=== PATIENT | female | born 1965 | race Two or more races ===

== ENCOUNTER → 2024-04-15 | Outpatient (CLI) | payer BC, SELFPAY ==
[2024-04-15 14:09] LABS: Glucose Estimated Average 143 mg/dL (80-131); Hemoglobin A1C 6.6 % Hgb (4.8-6.0)
[2024-04-15 14:19] LABS: Alanine Aminotransferase 22 U/L (10-49); Albumin, Serum 4.7 gm/dL (3.5-5.0); Albumin/Globulin Ratio 1.5 (1.2-2.2); Alkaline Phosphatase 92 U/L (46-116); Anion Gap 7 (7-16); Aspartate Amino Transferase 17 U/L (0-34); BUN/Creatinine Ratio 17 Ratio (12-20); Bilirubin,Total 1.3 mg/dL (0.3-1.2); Blood Urea Nitrogen 12 mg/dL (9-23); Calcium 9.8 mg/dL (8.3-10.6); Calcium (Corrected) 9.8 mg/dL (8.5-10.1); Carbon Dioxide 27.5 mMol/L (20.0-31.0); Cardiac Risk Estimate 3.9 RATIO (3.7-5.6); Chloride 104 mMol/L (98-107); Cholesterol 196 mg/dL (132-200); Creatinine (Component) 0.7 mg/dL (0.6-1.3); Globulin 3.2 gm/dL (2.3-3.5); Glucose 131 mg/dL (74-106); HDL Cholesterol 50 mg/dL (40-60); LDL Cholesterol,Calculated 103 mg/dL (0-130); Osmolality,Calculated 277 (275-295); Sodium 138 mMol/L (136-145); Total Protein 7.9 gm/dL (5.7-8.2); Triglycerides 217 mg/dL (30-150); eGFR > 60 See Note
== END | disposition home or self-care (01) ==
LOC: COPL 12:03
PROVIDERS: PCP Internal Medicine; Referring Provider Internal Medicine; Visit Provider Internal Medicine
DX: I10 Essential (primary) hypertension (principal); E11.65 Type 2 diabetes mellitus with hyperglycemia
CPT/HCPCS: 36415; 80053; 80061; 83036

== ENCOUNTER 2024-12-29 14:57 | Emergency (ER) | payer BC, SELFPAY ==
[2024-12-29 14:58] VITALS: BMI 29.5
[2024-12-29 15:09] VITALS: BP 138/91; PULSE 100; RESP 20; TEMP 37; O2SAT 100
--- NOTE | 2024-12-29 15:15 | PD.EDRME ---
Rapid Medical Screening Exam RME Arrival date/time: 12/29/24 14:57 59-year-old female with a history of type 2 diabetes, hypertension presents to the emergency room with a chief complaint of abdominal pain, diarrhea, vomiting, and uncontrolled sugar readings. I have greeted and performed a focused initial assessment of this patient. A comprehensive ED assessment and evaluation of the patient, analysis of all test results, and completion of the medical decision making process will be conducted by additional ED providers. Chief Complaint: General Adult/Misc Complain Time Seen by Provider: 12/29/24 14:59 Vital signs: Vital Signs Temperature 98.6 F 12/29/24 15:09 Pulse Rate 100 12/29/24 15:09 Respiratory Rate 20 12/29/24 15:09 Blood Pressure 138/91 H 12/29/24 15:09 Pulse Oximetry (%) 100 12/29/24 15:09 Oxygen Delivery Method Room Air 12/29/24 15:09 Vital signs reviewed by provider: Yes
[2024-12-29] MEDS: ONDANSETRON ODT 4 MG TABRAP PO (15:23)
[2024-12-29 16:10] VITALS: BP 122/91; PULSE 79; RESP 18; TEMP 36.6; O2SAT 97
--- NOTE | 2024-12-29 16:21 | PC.NURSE ---
PER PT, SHE HAS BEEN SICK THE PAST FEW DAYS WITH VOMITING AND DIARRHEA, HER SUGARS HAVE BEEN UP AND DOWN, GOING INTO THE LOW 200S. PT DOES NOT TAKE INSULIN IS ON METFORMIN. AWAITING FURTHER ORDERS FOR POC. CALL SAEED IN REACH FAMILY AT BEDSIDE ATTENTIVE TO PT.
[2024-12-29 16:22] LABS: Basophils # (Auto) 0.0 Thou/mm3 (0.0-0.2); Basophils % (Auto) 0 % (0-2.5); Eosinophils # (Auto) 0.1 Thou/mm3 (0.0-0.5); Eosinophils % (Auto) 1 % (0-10); Hematocrit 42.2 % (36.0-46.0); Hemoglobin 14.9 g/dL (12.0-16.0); Immature Granulocytes Auto 0.03 Thou/mm3 (0.00-0.00); Lymphocytes # (Auto) 1.7 Thou/mm3 (1.0-4.8); Lymphocytes % (Auto) 19 % (10-50); Mean Corpuscular HGB Conc 35.3 g/dl (31.0-37.0); Mean Corpuscular Hemoglobin 30.5 pg (25.0-35.0); Mean Corpuscular Volume 86 fL (80-100); Monocytes # (Auto) 0.4 Thou/mm3 (0.0-0.8); Monocytes % (Auto) 5 % (0-12); Neutrophils # (Auto) 6.8 Thou/mm3 (1.8-7.7); Neutrophils % (Auto) 75 % (37-80); Nucleated Red Blood Cell # 0.00 Thou/mm3 (0.00-0.00); Nucleated Red Blood Cell % 0 /100 WBC (0); Platelet Count 279 Thou/mm3 (140-440); RDW Standard Deviation 39.9 fL (36.4-46.3); Red Blood Count 4.89 Miln/mm3 (4.00-5.20); White Blood Count 9.1 Thou/mm3 (3.6-11.0)
[2024-12-29 16:31] LABS: Alanine Aminotransferase 52 U/L (10-49); Albumin, Serum 4.9 gm/dL (3.5-5.0); Albumin/Globulin Ratio 1.4 (1.2-2.2); Alkaline Phosphatase 88 U/L (46-116); Anion Gap 13 (7-16); Aspartate Amino Transferase 41 U/L (0-34); BUN/Creatinine Ratio 14 Ratio (12-20); Bilirubin,Total 2.6 mg/dL (0.3-1.2); Blood Urea Nitrogen 13 mg/dL (9-23); Calcium 10.0 mg/dL (8.3-10.6); Calcium (Corrected) 10.0 mg/dL (8.5-10.1); Carbon Dioxide 26.2 mMol/L (20.0-31.0); Chloride 96 mMol/L (98-107); Creatinine (Component) 0.9 mg/dL (0.6-1.3); Estimated Creatinine Clearance 66.4 mL/min (>60); Globulin 3.4 gm/dL (2.3-3.5); Glucose 144 mg/dL (74-106); Lipase 32 U/L (12-53); Osmolality,Calculated 273 (275-295); Potassium 3.5 mMol/L (3.4-5.1); Sodium 135 mMol/L (136-145); Total Protein 8.3 gm/dL (5.7-8.2); eGFR > 60 See Note
[2024-12-29 18:10] VITALS: BP 118/77; PULSE 78; RESP 16; TEMP 36.8; O2SAT 96
--- NOTE | 2024-12-29 18:48 | PD.EDRECHK ---
ED Recheck Abnl Lab Rx-RME/HPI General Chief Complaint: General Adult/Misc Complain Stated Complaint: HIGH BLOOD SUGAR Time Seen by Provider: 12/29/24 14:59 Arrival date/time: 12/29/24 14:57 RME / HPI RME / HPI narrative: 12/29/24 14:57 59-year-old female with a history of type 2 diabetes, hypertension presents to the emergency room with a chief complaint of abdominal pain, diarrhea, vomiting, and uncontrolled sugar readings. I have greeted and performed a focused initial assessment of this patient. A comprehensive ED assessment and evaluation of the patient, analysis of all test results, and completion of the medical decision making process will be conducted by additional ED providers. This section includes all my notes and documentations, including HPI, PE, and ED course. Jann Campos MD HPI: 59yo female with a history of DM, HTN here with nausea, vomiting, and diarrhea for the last few days. No abdominal pain. No other complaints reported. ROS: All negative except as documented in HPI. Physical Exam: General: Alert and oriented. No acute distress when remaining still. Eyes: Conjunctivae and lids clear. ENT: No nasal congestion. Neck: Supple. Heart: RRR. Lungs: No respiratory distress. Good air movement. No rhonchi, wheezing, rales. Abdomen: Soft and nontender. Normal bowel sounds. No distension. No rebound or guarding. Back: No CVA tenderness. Skin: Warm and dry. Neuro: Alert and oriented X 3. I reviewed all diagnostic test results. Blood tests and urine tests are unremarkable. COVID/Influenza negative. At this point, diagnoses include: stomach flu. Treatment here included: Zofran, Toradol, and NS. Significant improvement noted. Recommended supportive care. Based on my best medical judgment, made decision no further evaluation or treatment indicated at this time. Patient understands and agrees to the discharge instructions customized and printed, see below. Discharge Instructions from Dr. Campos: 1. After evaluation, you have stomach flu. See attached handout on gastroenteritis. 2. This is caused by virus germs. And we do not have good medications to kill the virus germs. But your immune system will fight it off. 3. Your job is to stay hydrated. Zofran for nausea/vomiting. Increase oral fluid and maintain clear urine. If dark or yellow, increase oral fluid. 4. Do not take any medications to stop your diarrhea. But try to replenish the fluid and electrolytes you are losing. 5. Some good choices are water (but not only water because it will cause electrolyte abnormalities), sports drinks like Gatorade (with less sugar content), coconut water, chicken stock, and other fluid with electrolytes (like Pedialyte). 6. See a private doctor on 01/01/2025 if not completely better. 7. Seek immediate medical care with worsening or with any concerns. Jann Campos MD Related Data Home Medications ?Medication ?Instructions ?Recorded ?Confirmed alprazolam 0.25 mg tablet 0.25 mg PO BID PRN Anxiety 08/04/20 08/04/20 losartan 50 mg-hydrochlorothiazide 1 tab PO QDAY 08/04/20 08/04/20 12.5 mg tablet metformin 500 mg tablet 500 mg PO TID 08/04/20 08/04/20 Previous Rx's ?Medication ?Instructions ?Recorded ondansetron 4 mg disintegrating 4 mg PO TID PRN nausea and 12/29/24 tablet vomiting 30 days #10 tabs Allergies Allergy/AdvReac Type Severity Reaction Status Date / Time methotrexate (From Allergy Severe Swelling Verified 12/29/24 15:00 Rheumatrex) of the Eye Review of Systems Review of Systems Systems Reviewed: All systems reviewed, normal except as documented Past Medical History Past Medical History NEUROLOGIC: Negative Neurological Disorders or Seizures CARDIAC: Positive Cardiac Disorders and Hypertension; Negative Congestive Heart Failure RESPIRATORY: Negative Chronic Obstructive Pulmonary Disease (COPD) GASTROINTESTINAL: Positive Gastrointestinal Disorders and Gall Bladder Disease GENITOURINARY: Negative Genitourinary Disorders or Renal Disease REPRODUCTIVE: Positive Previous Pregnancies (x3) MUSCULOSKELETAL: Negative Musculoskeletal Disorders ENDOCRINE: Positive Endocrine Disorders and Diabetes Mellitus Type 2; Negative Diabetes Mellitus Type 1 HEMATOLOGIC: Negative Blood Disorders or Anemia PSYCHO/SOCIAL: Positive Anxiety OTHER HISTORY: Positive Blood Transfusions; Negative Hospitalization, Autoimmune Disease, Down Syndrome, Developmental Delay, Shingles, Falls, Blood Transfusion Reaction, Anesthesia Reactions or Cancer Family History FAMILY HISTORY: Negative Family Cardiac Disorders Surgical History SURGICAL: Positive Abdominal Surgery, Hysterectomy and Section; Negative Cardiac Surgery, Ear Surgery or Joint Replacement Social History SMOKING STATUS: Never smoker SECOND HAND EXPOSURE: No SUBSTANCE USE: does not use ED Exam Narrative Physical exam: As noted in HPI. Course Quality Measures none Orders Category Date Time Status Bedside COVID-19 Antigen Test NOW Care 12/29/24 18:57 Completed Bedside Influenza A&B Antigen Test NOW Care 12/29/24 18:57 Completed Saline [Insert IV] NOW Care 12/29/24 18:57 Completed CBC Stat Lab 12/29/24 15:58 Completed CMP [Comprehensive Metabolic Panel] Stat Lab 12/29/24 15:58 Completed Lipase Stat Lab 12/29/24 15:58 Completed Magnesium Stat Lab 12/29/24 15:58 Completed UA [Urinalysis] Stat Lab 12/29/24 19:43 Completed Urine Culture Stat Lab 12/29/24 19:43 Received Ketorolac Inj [Toradol Inj] Med 12/29/24 18:57 Discontinued 30 mg IVP X1 ONE Ondansetron Inj [Zofran Inj] Med 12/29/24 18:57 Discontinued 4 mg IVP X1 ONE Ondansetron Odt [Zofran Odt] Med 12/29/24 15:15 Discontinued 4 mg PO X1 ONE Sodium Chloride 0.9% 1000 ml [Ns] 1,000 ml Med 12/29/24 18:57 Discontinued IV 999 mls/hr Vital Signs Vital signs: Vital Signs Temperature 98.6 F 12/29/24 15:09 Pulse Rate 100 12/29/24 15:09 Respiratory Rate 20 12/29/24 15:09 Blood Pressure 138/91 H 12/29/24 15:09 Pulse Oximetry (%) 100 12/29/24 15:09 Oxygen Delivery Method Room Air 12/29/24 15:09 Recheck / Abnormal Lab / Rx MDM Narrative MDM Narrative:: 59yo female with a history of DM, HTN here with nausea, vomiting, and diarrhea for the last few days. No abdominal pain. No other complaints reported. Patient data External records reviewed:: [facility] previous records (Per chart review, patient was seen here on 04/05/23 for dizziness.) Clinical information provided by:: patient Social determinants that could affect healthcare access:: none Patient has the following chronic illnesses:: DM, HTN How is presenting disease/condition affected by chronic disease/condition?: caused by Evaluation data The following diagnostics were reviewed and interpreted by me:: lab results Lab and/or radiology exams considered but not ordered:: none Interpretation Summary: I reviewed all diagnostic test results. Blood tests and urine tests are unremarkable. COVID/Influenza negative. Medications / Prescriptions Medications or Prescriptions considered but not ordered:: none Medication administrations:: Medication Administration History Discontinued Medications Sodium Chloride (Ns) 1,000 mls @ 999 mls/hr IV .Q1H1M ONE Stop: 12/29/24 19:57 Last Infusion: 12/29/24 20:49 Dose: Infused Documented By: Admin: 12/29/24 19:47 Dose: 999 mls/hr Documented By: CCT Ketorolac Tromethamine (Ketorolac Inj 30 Mg/Ml Vial) 30 mg IVP X1 ONE Stop: 12/29/24 18:58 Ondansetron HCl (Ondansetron Odt 4 Mg Tabrap) 4 mg PO X1 ONE; Protocol Stop: 12/29/24 15:16 Last Admin: 12/29/24 15:23 Dose: 4 mg Documented By: DB Ondansetron HCl (Ondansetron Inj 2 Mg/Ml Inj 2 Ml) 4 mg IVP X1 ONE; Protocol Stop: 12/29/24 18:58 Last Admin: 12/29/24 19:47 Dose: 4 mg Documented By: CCT Librado Ayala, NS Consultations Consultation(s) initiated? (list below): No Diagnosis Recheck Differential Diagnosis: other (Gastroenteritis) Most likely diagnosis given after review of the tests above:: Stomach flu Admission Indicated Admission indicated?: not indicated Explain why admission is indicated or not indicated:: With significant improvement and no condition needing emergent intervention, there was no indication for admission. Admission Request Was there a request for admission?: No Disposition Plan Disposition Plan: Discharge Discharge Attestation Discharge Attestation: The patient and all family members were given an opportunity to ask questions and understood the discharge instructions. Discharge instructions specifically effects, indications for sooner follow up or return to the emergency department, and the expected course of current diagnosis. Patient condition: Stable Discharge Plan Plan Patient Disposition: HOME (Self Care) Prescriptions/Referrals Prescriptions/Med Rec: New ondansetron 4 mg tablet,disintegrating 4 mg PO TID PRN (Reason: nausea and vomiting) 30 Days Qty: 10 0RF No Action alprazolam 0.25 mg Tablet 0.25 mg PO BID PRN (Reason: Anxiety) losartan-hydrochlorothiazide 50-12.5 mg Tablet 1 tab PO QDAY metformin 500 mg tablet 500 mg PO TID Referrals: No Primary/Family,Physician [Primary Care Provider] - In 1 week Problem List Clinical Impression: Stomach flu Patient/Caregiver Discharge Instructions Discharge Activity: activity as tolerated Education Materials: ED Gastroenteritis, Viral (Adult) Additional Instructions: Discharge Instructions from Dr. Campos: 1. After evaluation, you have stomach flu.? See attached handout on gastroenteritis. 2. This is caused by virus germs.? And we do not have good medications to kill the virus germs.? But your immune system will fight it off. 3. Your job is to stay hydrated.? Zofran for nausea/vomiting.? Increase oral fluid and maintain clear urine.? If dark or yellow, increase oral fluid. 4. Do not take any medications to stop your diarrhea.? But try to replenish the fluid and electrolytes you are losing. 5. Some good choices are water (but not only water because it will cause electrolyte abnormalities), sports drinks like Gatorade (with less sugar content), coconut water, chicken stock, and other fluid with electrolytes (like Pedialyte). 6. See a private doctor on 01/01/2025 if not completely better. 7. Seek immediate medical care with worsening or with any concerns. Print Language: Yoruba Stand Alone Forms: [facility] Award Info., Patient Portal Info Letter
[2024-12-29 19:16] LABS: Magnesium 1.8 mg/dL (1.6-2.6)
--- NOTE | 2024-12-29 19:45 | PC.NURSE ---
Pt denied any pain, refused toradol.
[2024-12-29] MEDS: ONDANSETRON INJ 2 MG/ML INJ 2 ML 4 MG IVP (19:47)
[2024-12-29] MEDS: SODIUM CHLORIDE 0.9% 1000 ML 1,000 ML 999 ML IV (19:47)
[2024-12-29 19:54] LABS: Collection Type, Urine Clean Catch
[2024-12-29 20:00] VITALS: BP 123/77; PULSE 65; RESP 18; TEMP 36.8; O2SAT 97
[2024-12-29 20:00] LABS: Bilirubin,Urine Negative (Negative); Blood,Urine Negative (Negative); Clarity,Urine Clear (Clear/Hazy); Color,Urine Lt-Yellow (Lt Yel-Yel); Glucose, Urine Negative (Negative); Hyaline Casts,Urine < 1 /hpf (0-1); Ketones,Urine Trace (Negative); Leukocyte Esterase,Urine Positive (Negative); Nitrite,Urine Negative (Negative); PH,Urine 6.5 (5.0-7.0); Protein,Urine Negative (Neg - Trace); RBC,Urine 1 /hpf (0-3); Specific Gravity,Urine 1.017 (1.001-1.035); Squamous Epithelial Cell,Urine 2 /hpf (0-5); Urobilinogen,Urine Negative mg/dL (0.0-1.0); WBC,Urine 8 /hpf (0-5)
[2024-12-29 21:00] VITALS: BP 126/77; PULSE 65; RESP 18; TEMP 36.8; O2SAT 98
== END 2024-12-29 21:00 | disposition home or self-care (01) ==
PROVIDERS: Nurse Practitioner Family; Emergency Provider Emergency Medicine
DX: A08.4 Viral intestinal infection, unspecified (principal)
CPT/HCPCS: 36415; 80053; 81001; 83690; 83735; 85025; 87086; 87400; 87811; 96361; 96374; 99283; J2405; J7030; Q0162